=== PATIENT | female | born 1935 | race Caucasian/White ===

== ENCOUNTER 2019-07-12 15:25 | Inpatient (IN) | payer MEDICARE ==
[~2019-07-12] VITALS: Ht 157.5 cm; Wt 49.6 kg
--- NOTE | 2019-07-12 16:02 | NUR ---
PT BIB FROM [facility] WHERE SHE WAS HAVING TEST PERFORMED SHE HAS STAGE 4 KIDNEY DISEASE. FELL AT THE CENTER NOW WITH SUBDURAL HEMATOMA. RESTING ON GURNEY. VSS. CONNECTED TO MONITOR.
--- NOTE | 2019-07-12 16:43 | NUR ---
PT HAS BEEN SEEN BY MD. PT GOING TO RADIOLOGY NOW. PT REQUESTING PAIN MEDICATION. AWARE THAT UPON HER RETURN TO ROOM SHE WILL BE MEDICATED.
--- NOTE | 2019-07-12 16:46 | NUR ---
MED REC ATTEMPTED AT THIS TIME. UNABLE TO PERFORM PT'S DAUGHTER DOES NOT KNOW PT'S MEDICATIONS AND LIST IS AT HOME. PT'S DAUGHTER CURRENTLY CALLING PT'S PHARMACY TO GET ACCURATE MED LIST NOW.
[2019-07-12] MEDS ORDERED: HYDROcodone/APAP 5/325 TABLET ONE (16:54)
[2019-07-12] MEDS ORDERED: LATA7.5D EACHEYE (16:56)
[2019-07-12] MEDS ORDERED: CYCL-259 PO (16:56)
--- NOTE | 2019-07-12 16:57 | NUR ---
PT BACK FROM RADIOLOGY. RESTING ON [employer]. CONNECTED TO MONITOR. NADN. CLARKES. MEDICATED PER EMAR. MED REC COMPLETED.
[2019-07-12] MEDS ORDERED: HYDROcodone/APAP 5/325 TABLET PO ONE (17:00)
[2019-07-12] MEDS ORDERED: [UNRECOGNIZED DRUG - OTHER] (17:04)
[2019-07-12] MEDS ORDERED: CHOL2000 PO (17:04)
[2019-07-12] MEDS ORDERED: SODIUM BICARBONATE (17:04)
[2019-07-12] MEDS ORDERED: LACT1CAP43 PO (17:04)
[2019-07-12] MEDS ORDERED: TRAZ50TA66 PO (17:04)
[2019-07-12] MEDS ORDERED: MULT-508 PO (17:04)
[2019-07-12] MEDS ORDERED: POTASSIUM PO (17:04)
[2019-07-12] MEDS ORDERED: CALCIUM (17:04)
[2019-07-12] MEDS ORDERED: FURO20TA3 PO (17:04)
[2019-07-12] MEDS ORDERED: SIMV40TA3 PO (17:04)
[2019-07-12] MEDS ORDERED: METO50TA4 PO (17:04)
[2019-07-12] MEDS ORDERED: BISA-49 PO (17:04)
[2019-07-12] MEDS ORDERED: CALC0.25 PO (17:04)
[2019-07-12] MEDS ORDERED: AMLO-150 PO (17:04)
[2019-07-12] MEDS ORDERED: GABA300C10 PO (17:04)
[2019-07-12] MEDS ORDERED: ASPI-496 PO (17:45)
--- NOTE | 2019-07-12 17:45 | NUR ---
LAB AT BEDSIDE. PT RESTING ON [facility]. NADN. WILBURN.
[2019-07-12 17:59] LABS: BASOPHILS # (AUTO) 0.11 x10^3/uL (0-0.1); BASOPHILS % (AUTO) 1 % (0-1); EOSINOPHILS # (AUTO) 0.29 x10^3/uL (0-0.4); EOSINOPHILS % (AUTO) 2 % (1-7); LYMPHOCYTES # (AUTO) 1.65 x10^3/uL (1-3.4); LYMPHOCYTES % (AUTO) 14 % (22-44); MD NO; MEAN CORPUSCULAR HEMOGLOBIN 29.7 pg (27.0-34.8); MEAN CORPUSCULAR HGB CONC 32.5 g/dL (32.4-35.8); MEAN CORPUSCULAR VOLUME 91.3 fL (80-100); MEAN PLATELET VOLUME 7.7 fL (7.4-10.4); MONOCYTES # (AUTO) 0.85 x10^3/uL (0.2-0.8); MONOCYTES % (AUTO) 7 % (2-9); NEUTROPHILS % (AUTO) 76 % (42-75); PLATELET COUNT 270 x10^3/uL (130-400); RED BLOOD COUNT 4.45 x10^6/uL (3.82-5.3); RED CELL DISTRIBUTION WIDTH 14.8 % (9.6-15.2)
[2019-07-12 18:07] LABS: PROTHROMBIN TIME 10.6 Seconds (9.6-11.5)
[2019-07-12 18:12] LABS: ALANINE AMINOTRANSFERASE 41 U/L (12-78); ALBUMIN 3.1 g/dL (3.4-5.0); ANION GAP 9 mmol/L (5-15); CHLORIDE 111 mmol/L (98-107)
[2019-07-12 18:14] LABS: ALKALINE PHOSPHATASE 101 U/L (45-117); BILIRUBIN,TOTAL 0.4 mg/dL (0.2-1.0); TOTAL PROTEIN 6.7 g/dL (6.4-8.2)
--- NOTE | 2019-07-12 18:21 | NUR ---
NEUROLOGIST AT BEDSIDE ASSESSING PT NOW.
[2019-07-12] MEDS ORDERED: ACETAMINOPHEN 325 MG TABLET PO PRN (18:30)
[2019-07-12] MEDS ORDERED: ONDANSETRON 2MG/ML, 2ML IVPush PRN (18:30)
--- NOTE | 2019-07-12 19:12 | NUR ---
REPORT GIVEN TO IRIS IMLLER.
--- NOTE | 2019-07-12 20:22 | NUR ---
NEURO CHECKS Q 2 HRS. NEURO CHECK PERFORMED 2022
--- NOTE | 2019-07-12 21:10 | NUR ---
in room to start second iv. pt at this time refusing second iv. pt states "they have to poke me so many times, my veins are small and they just pop."
--- NOTE | 2019-07-12 21:44 | NUR ---
BEDSIDE REPORT RECIEVED FROM IRIS HARDY Addendum: 07/12/19 at 2145 by FAYE IRIS MILLER
[2019-07-12] MEDS ORDERED: AMLODIPINE 5 MG TABLET ONE (22:00)
[2019-07-12] MEDS ORDERED: CYCLOBENZAPRINE 10 MG TABLET ONE (22:00)
[2019-07-12] MEDS ORDERED: GABAPENTIN 300 MG CAPSULE ONE (22:00)
--- NOTE | 2019-07-12 22:05 | NUR ---
med request tubed to lab
[2019-07-12] MEDS: CYCLOBENZAPRINE 10 MG TABLET PO SCH (22:47)
[2019-07-12] MEDS: SIMVASTATIN 40 MG TABLET PO SCH (22:47)
[2019-07-12] MEDS: AMLODIPINE 5 MG TABLET PO SCH (22:48)
[2019-07-12] MEDS: GABAPENTIN 300 MG CAPSULE PO SCH (22:48)
--- NOTE | 2019-07-12 23:50 | NUR ---
PT PROVIDED HOSPITAL BED. NEUROCHECK UNREMARKABLE. PT NOW RESTING ON HOSPITAL BED. VSS. PT ATTACHED TO ALL MONITORS. CALL LIGHT WITHIN REACH. STAN PLACED AND PT EDUCATED ON ITS USE AND VERBALIZED UNDERSTANDING. WILL CONTINUE TO MONITOR.
--- NOTE | 2019-07-13 02:21 | NUR ---
PT PROVIDED WATER. NEUROCHECK REMAINS UNREMARKABLE.
[2019-07-13 05:46] LABS: CHLORIDE 110 mmol/L (98-107)
[2019-07-13 05:52] LABS: BASOPHILS # (AUTO) 0.02 x10^3/uL (0-0.1); BASOPHILS % (AUTO) 0 % (0-1); EOSINOPHILS % (AUTO) 4 % (1-7); LYMPHOCYTES # (AUTO) 1.03 x10^3/uL (1-3.4); LYMPHOCYTES % (AUTO) 10 % (22-44); MD NO; MEAN CORPUSCULAR HEMOGLOBIN 29.5 pg (27.0-34.8); MEAN CORPUSCULAR HGB CONC 32.3 g/dL (32.4-35.8); MEAN CORPUSCULAR VOLUME 91.3 fL (80-100); MONOCYTES # (AUTO) 0.65 x10^3/uL (0.2-0.8); MONOCYTES % (AUTO) 7 % (2-9); NEUTROPHILS # (AUTO) 7.82 x10^3/uL (1.8-6.8); NEUTROPHILS % (AUTO) 79 % (42-75); PLATELET COUNT 242 x10^3/uL (130-400); RED BLOOD COUNT 4.08 x10^6/uL (3.82-5.3); RED CELL DISTRIBUTION WIDTH 14.4 % (9.6-15.2)
[2019-07-13 05:53] LABS: ANION GAP 8 mmol/L (5-15); CALCIUM 8.7 mg/dL (8.5-10.1)
--- NOTE | 2019-07-13 07:20 | NUR ---
report to [facility] nurse
--- NOTE | 2019-07-13 07:30 | NUR ---
PT TRANSPORTED TO CT AND FOLLOWING TO ICU 6 BY RN AND DISTANCE LEARNING PROGRAM COORDINATOR.
[2019-07-13] MEDS: CYCLOBENZAPRINE 10 MG TABLET PO SCH ×2 (09:00→20:22)
[2019-07-13] MEDS: GABAPENTIN 300 MG CAPSULE PO SCH ×2 (10:05→20:23)
[2019-07-13] MEDS: CALCITRIOL 0.25 MCG CAPSULE PO SCH (10:06)
[2019-07-13] MEDS: METOPROLOL TARTRATE 25 MG TABLET PO SCH (10:06)
[2019-07-13] MEDS: FUROSEMIDE 20 MG TABLET PO SCH (10:06)
[2019-07-13] MEDS: AMLODIPINE 5 MG TABLET PO SCH ×2 (10:06→20:23)
[2019-07-13] MEDS ORDERED: MORPHINE SULFATE 4 MG/ML, 1ML IVPush PRN (12:00)
[2019-07-13] MEDS: HYDROcodone/APAP 5/325 TABLET PO PRN ×2 (12:01→17:06)
[2019-07-13 12:16] LABS: TROPONIN I < 0.015 ng/mL (0.000-0.045)
[2019-07-13 14:49] VITALS: BP 134/62
[2019-07-13 16:07] VITALS: BP 152/86
[2019-07-13 18:09] LABS: TROPONIN I < 0.015 ng/mL (0.000-0.045)
[2019-07-13] MEDS: SIMVASTATIN 40 MG TABLET PO SCH (20:22)
[2019-07-13 21:00] VITALS: BP 115/69
[2019-07-13 21:03] VITALS: BP 114/74
[2019-07-13 21:05] VITALS: BP 109/66
[2019-07-13 23:49] LABS: TROPONIN I 0.019 ng/mL (0.000-0.045)
[2019-07-14 02:02] VITALS: BP 124/71
[2019-07-14 08:01] LABS: BASOPHILS # (AUTO) 0.04 x10^3/uL (0-0.1); BASOPHILS % (AUTO) 0 % (0-1); EOSINOPHILS # (AUTO) 0.61 x10^3/uL (0-0.4); EOSINOPHILS % (AUTO) 6 % (1-7); LYMPHOCYTES # (AUTO) 1.65 x10^3/uL (1-3.4); LYMPHOCYTES % (AUTO) 16 % (22-44); MD NO; MEAN CORPUSCULAR HEMOGLOBIN 29.5 pg (27.0-34.8); MEAN CORPUSCULAR VOLUME 92.3 fL (80-100); MEAN PLATELET VOLUME 7.8 fL (7.4-10.4); MONOCYTES # (AUTO) 0.56 x10^3/uL (0.2-0.8); MONOCYTES % (AUTO) 5 % (2-9); NEUTROPHILS # (AUTO) 7.79 x10^3/uL (1.8-6.8); NEUTROPHILS % (AUTO) 73 % (42-75); PLATELET COUNT 231 x10^3/uL (130-400); RED BLOOD COUNT 4.51 x10^6/uL (3.82-5.3); RED CELL DISTRIBUTION WIDTH 14.3 % (9.6-15.2)
[2019-07-14 08:15] VITALS: BP 151/81
[2019-07-14 08:15] LABS: ANION GAP 10 mmol/L (5-15); CALCIUM 8.7 mg/dL (8.5-10.1); CHLORIDE 106 mmol/L (98-107)
[2019-07-14 08:19] LABS: CHOL/HDL RATIO 3.1; CHOLESTEROL, TOTAL 133 mg/dL (140-239); CREATININE 2.28 mg/dL (0.55-1.02); HDL CHOL % 32 % (28-40); HDL CHOLESTEROL (DIRECT) 43 mg/dL (40-60); LDL CHOLESTEROL,CALCULATED 71 mg/dL (54-169); LDL/HDL RATIO 1.7 (0.5-3.0); TRIGLYCERIDES 95 mg/dL (50-200); VLDL CHOLESTEROL 19 mg/dL (0-25)
[2019-07-14] MEDS: AMLODIPINE 5 MG TABLET PO SCH ×2 (09:54→20:22)
[2019-07-14] MEDS: CYCLOBENZAPRINE 10 MG TABLET PO SCH ×2 (09:54→20:22)
[2019-07-14] MEDS: CALCITRIOL 0.25 MCG CAPSULE PO SCH (09:54)
[2019-07-14] MEDS: FUROSEMIDE 20 MG TABLET PO SCH (09:54)
[2019-07-14] MEDS: GABAPENTIN 300 MG CAPSULE PO SCH ×2 (09:54→20:22)
[2019-07-14] MEDS: METOPROLOL TARTRATE 25 MG TABLET PO SCH (09:55)
[2019-07-14] MEDS: HYDROcodone/APAP 5/325 TABLET PO PRN ×2 (10:00→20:21)
[2019-07-14 13:04] VITALS: BP 128/75
[2019-07-14 20:18] VITALS: BP 133/70
[2019-07-14] MEDS: SIMVASTATIN 40 MG TABLET PO SCH (20:21)
[2019-07-15 00:55] VITALS: BP 132/78
[2019-07-15 04:00] VITALS: BP 131/75
[2019-07-15] MEDS: HYDROcodone/APAP 5/325 TABLET PO PRN (04:26)
[2019-07-15 07:16] VITALS: BP 116/71
[2019-07-15] MEDS: CYCLOBENZAPRINE 10 MG TABLET PO SCH (08:41)
[2019-07-15] MEDS: CALCITRIOL 0.25 MCG CAPSULE PO SCH (08:41)
[2019-07-15] MEDS: METOPROLOL TARTRATE 25 MG TABLET PO SCH (08:41)
[2019-07-15] MEDS: AMLODIPINE 5 MG TABLET PO SCH (08:41)
[2019-07-15] MEDS: FUROSEMIDE 20 MG TABLET PO SCH (08:41)
[2019-07-15] MEDS: GABAPENTIN 300 MG CAPSULE PO SCH (08:41)
[2019-07-15 13:16] VITALS: BP 115/70
== END 2019-07-15 15:55 | disposition home or self-care (01) | DRG 86 ==
LOC: ED 17:34 → EDIP 18:15 → ICU 07-13 07:47 → 4WST 07-13 16:01 → DCLOUNGE 07-15 15:41
PROVIDERS: ADMIT Internal Medicine; ATTEND Internal Medicine
PROC: 0CQ1XZZ Repair Lower Lip, External Approach (ICD-10-PCS; principal; 2019-07-12)
DX: S06.5X0A Traumatic subdural hemorrhage without loss of consciousness, initial encounter (principal); I50.32 Chronic diastolic (congestive) heart failure; I13.0 Hypertensive heart and chronic kidney disease with heart failure and stage 1 through stage 4 chronic kidney disease, or unspecified chronic kidney disease; N18.4 Chronic kidney disease, stage 4 (severe); G89.11 Acute pain due to trauma; I25.10 Atherosclerotic heart disease of native coronary artery without angina pectoris; J32.0 Chronic maxillary sinusitis; R32 Unspecified urinary incontinence; S01.81XA Laceration without foreign body of other part of head, initial encounter; Z66 Do not resuscitate; W18.39XA Other fall on same level, initial encounter; Z79.82 Long term (current) use of aspirin; Z86.73 Personal history of transient ischemic attack (TIA), and cerebral infarction without residual deficits; Z95.1 Presence of aortocoronary bypass graft; Z95.2 Presence of prosthetic heart valve; Y93.89 Activity, other specified; Y92.89 Other specified places as the place of occurrence of the external cause; Y99.8 Other external cause status; Z79.899 Other long term (current) drug therapy; R07.89 Other chest pain
CPT/HCPCS: 36415; 70450; 80048; 80053; 80061; 84484; 85025; 85610; 87081; 93005; 93306; 93880; 99291; G0378